=== PATIENT | male | born 1995 | race Caucasian/White ===

== ENCOUNTER → 2018-03-01 | Outpatient (CLI) | payer BC ==
[2018-03-01 14:05] LABS: Appearance,Urine Clear (Clear); Bilirubin,Urine Negative (Negative); Blood,Urine Negative (Negative); Color,Urine Light Yellow; Glucose,Urine (UA) Negative (Negative); Ketones,Urine Negative (Negative); Leukocyte Esterase,Urine Negative (Negative); Nitrite,Urine Negative (Negative); Protein,Urine Negative (Negative); Specific Gravity,Urine 1.006 (1.001-1.035); Urobilinogen,Urine <2.0 mg/dL (<2.0)
[2018-03-01 14:06] LABS: HCT 46.3 % (39.0-53.0); HGB 15.8 gm/dL (13.0-17.5); MCH 30.1 pg (25.0-35.0); MCHC 34.1 g/dL (31.0-37.0); MCV 88.3 fL (80.0-100.0); Mean Platelet Volume 9.1; Platelet Count 166 k/uL (150-450); RBC 5.25 m/uL (4.30-5.90); RDW 12.7 % (11.5-15.5); WBC 6.1 k/uL (3.8-10.6)
[2018-03-01 14:13] LABS: ALT 29 U/L (21-72); AST 17 U/L (17-59); Albumin 4.5 g/dL (3.5-5.0); Alkaline Phosphatase 72 U/L (38-126); Anion Gap 13 mmol/L; Blood Urea Nitrogen 13 mg/dL (9-20); Calcium 9.9 mg/dL (8.4-10.2); Carbon Dioxide 27 mmol/L (22-30); Chloride 103 mmol/L (98-107); Glucose 92 mg/dL (74-99); INR 1.1 (<1.2); Partial Thromboplastin Time 25.3 sec (22.0-30.0); Potassium 4.3 mmol/L (3.5-5.1); Prothrombin Time 10.3 sec (9.0-12.0); Sodium 143 mmol/L (137-145); Total Bilirubin 0.5 mg/dL (0.2-1.3); Total Protein 7.1 g/dL (6.3-8.2)
== END | disposition home or self-care (01) ==
LOC: LABPAT 13:20
PROVIDERS: ATTEND Orthopaedic Surgery
DX: Z01.818 Encounter for other preprocedural examination (principal); Z01.812 Encounter for preprocedural laboratory examination
CPT/HCPCS: 80053; 81003; 85027; 85610; 85730; 87070; 93005

== ENCOUNTER → 2018-03-15 | Outpatient (CLI) | payer BC | END | disposition home or self-care (01) | LOC: LABPAT 11:33 | PROVIDERS: ATTEND Orthopaedic Surgery | DX: Z01.812 Encounter for preprocedural laboratory examination (principal) | CPT/HCPCS: 86850; 86900; 86901 ==

== ENCOUNTER 2018-03-26 05:44 | Inpatient (IN) | payer BC ==
[2018-03-18 15:28] VITALS: BMI 35.8
[~2018-03-26 05:44] MED LIST: ACETAMINOPHEN TAB 500 MG TAB PO ONE; DEXAMETHASONE SOD PHOSPHATE 10 MG/ML 1 ML VIAL IV ONE; HYDROmorphone 0.5 MG/0.5 ML SYRINGE IVP PRN; LIDOCAINE 1% 20 ML VIAL (10MG/ML) FOR IV START INTRADERMA PRN; MELOXICAM 7.5 MG TAB PO ONE; MIDAZOLAM 2 MG/2 ML VIAL IV PRN; ONDANSETRON ODT 4 MG TAB PO ONE; SCOPOLAMINE 1.5MG/72HR PATCH TRANSDERM ONE; TRANEXAMIC ACID 1,000 MG in SODIUM CHLORIDE 0.9% 50 ML IVPB ONE; ceFAZolin IN SWFI 2 GM/20 ML SYRINGE IVP ONE
[2018-03-26] MEDS ORDERED: ROPIVACAINE 246.25 MG, EPINEPHrine 0.5 MG, KETOROLAC 30 MG, cloNIDine HCL/PF 80 MCG, WA... MISCELLANE ONE ×5 (05:50)
[2018-03-26] MEDS: LACTATED RINGERS 1,000 ML IV SCH (06:33)
[2018-03-26] MEDS ORDERED: HYDROcodone/APAP 5-325MG 1 EACH TAB PO PRN (06:58)
[2018-03-26] MEDS ORDERED: NALOXONE 0.4 MG/ML 1 ML VIAL IV PRN (06:58)
[2018-03-26] MEDS ORDERED: MAGNESIUM HYDROXIDE 2,400 MG/10 ML CUP PO PRN (06:58)
[2018-03-26] MEDS ORDERED: MORPHINE SULFATE 4 MG/ML SYRINGE IVP PRN ×3 (06:58)
[2018-03-26] MEDS ORDERED: hydrOXYzine PAMOATE 25 MG CAP PO PRN (06:58)
[2018-03-26] MEDS ORDERED: DIAZEPAM 5 MG TAB PO PRN ×2 (06:58)
[2018-03-26] MEDS ORDERED: ceFAZolin 3,000 MG in SODIUM CHLORIDE 0.9% IRRIGATIO 3,000 ML IRRIGATION ONE (07:00)
[2018-03-26] MEDS ORDERED: MIDAZOLAM 2 MG/2 ML VIAL ONE (07:00)
[2018-03-26] MEDS ORDERED: SODIUM CHLORIDE 0.9% 100 ML BAG ONE (07:00)
[2018-03-26] MEDS ORDERED: ePHEDrine SULFATE/0.9% NACL/PF 50 MG/5 ML SYRINGE IV ONE (07:00)
[2018-03-26] MEDS ORDERED: fentaNYL (PF) 50 MCG/ML 2 ML AMP ONE (07:00)
[2018-03-26] MEDS ORDERED: PROPOFOL 10 MG/ML 20 ML VIAL IV ONE (07:00)
[2018-03-26] MEDS ORDERED: HEPARIN SODIUM,PORCINE 10,000 UNIT/ML 1 ML VIAL ONE (07:00)
[2018-03-26] MEDS ORDERED: TRANEXAMIC ACID 1,000 MG/10 ML VIAL ONE (07:00)
[2018-03-26] MEDS ORDERED: LACTATED RINGERS 1,000 ML BAG IV ONE (07:00)
[2018-03-26] MEDS ORDERED: DEXTROSE 50%-WATER 50 ML SYRINGE IVP ONE (07:00)
[2018-03-26] MEDS ORDERED: LACTATED RINGERS 1,000 ML IV ONE (08:27)
--- NOTE | 2018-03-26 08:56 | P.OP ---
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 The articulation is Oxinium on polyethylene. Anesthesia: spinal Surgeon: Tomer Louis Parts Identification Technician #1: Jud Ortega Estimated Blood Loss (ml): 600 (261 mL returned with Cell Saver) Pathology: other (Femoral head) Condition: stable Disposition: PACU Indications for Procedure: After failure of conservative treatment we discussed the surgical and nonsurgical treatment options at length. Patient wishes to proceed with a total hip arthroplasty with a direct anterior approach. Complications specific to this procedure were discussed at length, including but not limited to infection, leg length discrepancy, dislocation, and nerve injury. Patient is aware of all these complications and informed consent was obtained Operative Findings: The operative findings are consistent with severe osteoarthritis secondary to the history of Perthes disease. Description of Procedure: Patient was seen and evaluated in the preoperative area, consent was reviewed, and the surgical site was marked with a skin marker. Patient was then brought to the operating room and given prophylactic antibiotics intravenously. 1 g of Tranexamic acid was also given. A spinal anesthetic was administered by the anesthesia department. The patient was then placed on the [place] table with the bony prominences well-padded. The hip area was then prepped and draped in usual sterile fashion. A universal timeout was then performed, which confirmed the patient's name, surgical site, ALLERGIES, and procedure being performed. Next the incision site was located at 1 cm distal and 1 cm lateral to the anterior superior iliac spine. The skin and subcutaneous tissues were sharply incised. Incision was carefully dissected down to the fascia overlying the tensor fascia krista muscle. This fascia was then incised in line with the incision. Next, using blunt finger dissection, the tensor fascia krista muscle was dissected off its investing fascia. The muscle was then carefully retracted laterally with a cobra retractor over the lateral neck of the femur. Next, the circumflex vessels were identified and cauterized using the AquaMantis device. The anterior hip capsule was then exposed. The capsule was then opened and an inverted T fashion. Cobra retractors were then placed intracapsularly. The proximal femur was then visualized. The femoral neck was then osteotomized appropriate level above the lesser trochanter. Small amount of traction was placed with the [place] table. A small wedge of bone was then removed from the remaining femoral head. Next, using a corkscrew femoral head was easily removed from the acetabulum. On gross visual inspection, the femoral head had complete loss of articular cartilage in multiple periarticular osteophytes. Attention was then turned to the acetabulum. the acetabulum was exposed and any remaining labrum was excised. Sequential reaming of the acetabulum was performed using fluoroscopic guidance. When the appropriate size was reached, a trial was then placed. The position and fit of the trial was checked with fluoroscopy. The trial was then removed. Then, using fluoroscopic guidance, the final implant was impacted at 20 of anteversion and 40 of abduction, and fully seated in the acetabulum. 3 screws were then placed in the acetabulum. Again fluoroscopy was used to check position of the screws. Next, the liner was then impacted, with a 20 elevated liner located in the anterior superior quadrant. Component locking was confirmed. Attention was then directed to the femur. With the aid of the [place] table, the femur was externally rotated to approximately 130, extended, and abducted under the opposite leg. A side hook was then placed under the proximal femur, and the side hook elevator was used to elevate the proximal femur. Retractors were then placed. A capsular release was performed, as well as a release of the conjoined tendon, which afforded excellent visualization of the proximal femur. Next, a box osteotome was used to lateralize the proximal femur. A hand packer was then used to locate the femoral canal. Sequential broaching was then performed with appropriate size which afforded excellent fixation in the proximal femur. A trial was then placed with appropriate head and neck, and the hip was gently reduced with the aid of the [place] table. Fluoroscopy was then used to check position of the components, as well as to ensure equal leg lengths. The hip was then gently dislocated and the trials were then removed. Final implants were then impacted and the hip was again reduced. Final fluoroscopic x-rays confirmed that the components were in anatomic position, as well as equal leg lengths. The hip was also taken through range of motion, and found to be stable. The hip was then copiously irrigated with antibiotic solution with pulsatile lavage. The hip was then irrigated with Irrisept solution. The soft tissues were then injected with a ropivacaine solution, which consisted of 246.25 mg of ropivacaine, 0.5 mg of epinephrine, 30 mg of Toradol, 80 g of clonidine, and 48.45 mL of sterile water, for a total of 100 mL of fluid injected. A second dose of 1 g of Tranexamic acid was also given. the fascia was then closed with 2-0 strata fix suture. The subcutaneous tissue was closed with 3-0 Vicryl. The subcuticular tissue was closed with 3-0 strata fix suture. The skin was then closed with Dermabond glue and a sterile silver dressing. The patient was then transferred to the recovery room in stable condition. The title assistant NALLELY Zafar was required due to the complexity of surgery, and the need for skilled surgical supply assistant for positioning, draping, exposure, retraction, and closure of the wound.
[2018-03-26] MEDS: MORPHINE SULFATE 2 MG/ML SYRINGE IV PRN ×4 (09:21→10:18)
--- NOTE | 2018-03-26 09:50 | XR ---
EXAMINATION TYPE: XR Hip Limited RT DATE OF EXAM: 03/26/2018 CLINICAL HISTORY: Right hip pain and osteoarthritis. TECHNIQUE: Single AP portable view of right hip is obtained immediately postoperatively. COMPARISON: None. FINDINGS: Metallic hardware from right hip arthroplasty is seen and appears satisfactory in alignment and position. There is evidence of recent surgery with subcutaneous gas noted laterally. IMPRESSION: Metallic hardware from right hip arthroplasty is satisfactory in position.
--- NOTE | 2018-03-26 12:20 | FL ---
Fluoroscopy HISTORY: Hip replacement 1 minute 13 seconds fluoroscopy time supplied to the referring clinician. 2 intraoperative C-arm alka ges document the procedure. See dictated report from orthopedic surgery.
--- NOTE | 2018-03-26 12:28 | XR ---
Limited right hip HISTORY: Right hip replacement 2 intraoperative C-arm images document the procedure
[2018-03-26] MEDS: HYDROcodone/APAP 5-325MG 1 EACH TAB PO PRN ×2 (14:21→21:35)
[2018-03-26] MEDS: SODIUM CHLORIDE 0.9% 1,000 ML IV SCH (14:22)
[2018-03-26] MEDS: ceFAZolin IN SWFI 2 GM/20 ML SYRINGE IVP SCH ×2 (17:04→23:23)
--- NOTE | 2018-03-26 17:17 | P.CONS ---
History of Present Illness - Reason for Consult Preoperative consultation management - History of Present Illness Patient was admitted for right hip arthroplasty elective surgery secondary to severe osteoarthritis from perthes disease. Patient's x-ray underwent surgery did pass gas did not move his bowel yet patient the underwent surgery today. Patient denied any fever chills nausea vomiting. Dysuria, denied any cough. Patient does not have any major medical problems bit obese Review of Systems REVIEW OF SYSTEMS: CONSTITUTIONAL: No fever, no malaise, no fatigue. HEENT: No recent visual problems or hearing problems. Denied any sore throat. CARDIOVASCULAR: No chest pain, orthopnea, PND, no palpitations, no syncope. PULMONARY: No shortness of breath, no cough, no hemoptysis. GASTROINTESTINAL: No diarrhea, no nausea, no vomiting, no abdominal pain. Normoactive bowel sounds. NEUROLOGICAL: No headaches, no weakness, no numbness. HEMATOLOGICAL: Denies any bleeding or petechiae. GENITOURINARY: Denies any burning micturition, frequency, or urgency. MUSCULOSKELETAL/RHEUMATOLOGICAL: Denies any joint pain, swelling, or any muscle pain. ENDOCRINE: Denies any polyuria or polydipsia. The rest of the 14-point review of systems is negative. Past Medical History Additional Past Medical History / Comment(s): perthes disease History of Any Multi-Drug Resistant Organisms: None Reported Additional Past Surgical History / Comment(s): hx 2 hips surgeries with pins Past Anesthesia/Blood Transfusion Reactions: No Reported Reaction Past Psychological History: No Psychological Hx Reported Smoking Status: Never smoker Past Alcohol Use History: Occasional Past Drug Use History: Marijuana Additional Drug Use History / Comment(s): occassional marijuana use - Past Family History Father Family Medical History: Liver Disease Additional Family Medical History / Comment(s): hx hepatitis C Medications and Allergies Home Medications Medication Instructions Recorded Confirmed Type No Known Home Medications [No 03/18/18 03/26/18 History Known Home Medications] Allergies Allergy/AdvReac Type Severity Reaction Status Date / Time latex Allergy Rash/Hives Verified 03/26/18 08:28 Physical Exam Vitals: Vital Signs Temp Pulse Pulse Resp BP Pulse Ox 03/26/18 14:55 98.9 F 81 16 108/63 97 03/26/18 12:30 69 98/61 03/26/18 12:15 62 105/60 05/01/18 12:00 82 114/70 03/26/18 11:45 66 109/72 03/26/18 11:30 97.7 F 71 16 120/77 100 03/26/18 10:50 73 16 117/56 03/26/18 10:20 66 16 118/58 99 03/26/18 10:05 63 16 111/55 99 03/26/18 09:50 80 16 111/55 99 03/26/18 09:35 77 18 113/58 100 03/26/18 09:20 68 16 117/55 99 03/26/18 09:05 96.9 F L 73 16 110/59 100 03/26/18 06:25 98.2 F 91 16 146/70 97 Intake and Output 03/26/18 03/26/18 03/26/18 06:59 14:59 22:59 Intake Total 100 1741 Output Total 600 Balance 100 1141 Intake: IV 100 1741 Sodium Chloride 0.9% 1, 140 000 ml @ 70 mls/hr IV . [id number] [facility] Rx#:[id number] Output: Estimated Blood Loss 600 Other: Weight 100.698 kg PHYSICAL EXAMINATION: GENERAL: The patient is alert and oriented x3, not in any acute distress. Well developed, well nourished. HEENT: Pupils are round and equally reacting to light. EOMI. No scleral icterus. No conjunctival pallor. Normocephalic, atraumatic. No pharyngeal erythema. No thyromegaly. CARDIOVASCULAR: S1 and S2 present. No murmurs, rubs, or gallops. PULMONARY: Chest is clear to auscultation, no wheezing or crackles. ABDOMEN: Soft, nontender, nondistended, normoactive bowel sounds. No palpable organomegaly. MUSCULOSKELETAL: Deferred to orthopedic surgery EXTREMITIES: No cyanosis, clubbing, or pedal edema. NEUROLOGICAL: Gross neurological examination did not reveal any focal deficits. SKIN: No rashes. Assessment and Plan Plan: -Severe osteoarthritis status post right knee arthroplasty -Obesity: Dietary counseling was provided -Perthes disease. Plan: Pain management due to prophylaxis wound care as per primary service patient is otherwise clinically doing well did pass gas, doesn't have any major medical problems counseling regarding marijuana use was provided. We'll continue to follow the patient on as-needed basis
[2018-03-26] MEDS ORDERED: SENNOSIDES-DOCUSATE SODIUM 1 EACH TAB PO SCH (21:00)
[2018-03-26] MEDS: ASPIRIN 325 MG TAB PO SCH (21:25)
[2018-03-27] MEDS: SODIUM CHLORIDE 0.9% 1,000 ML IV SCH ×2 (00:46→07:43)
[2018-03-27 01:41] VITALS: RESP 15
[2018-03-27] MEDS: HYDROcodone/APAP 5-325MG 1 EACH TAB PO PRN ×2 (03:21→12:52)
[2018-03-27 07:03] VITALS: BP 118/71; PULSE 89; TEMP 97.8
[2018-03-27] MEDS: LACTATED RINGERS 1,000 ML IV SCH (07:42)
[2018-03-27] MEDS ORDERED: HYDROmorphone 2 MG TAB PO PRN ×2 (07:51→07:52)
[2018-03-27] MEDS ORDERED: HYDROmorphone 4 MG TABLET PO PRN (07:51)
[2018-03-27 08:03] LABS: Basophils % (A) 0 %; Eosinophils # (A) 0.1 k/uL (0-0.7); Eosinophils % (A) 1 %; HCT 34.8 % (39.0-53.0); Lymphocytes # (A) 2.5 k/uL (1.0-4.8); Lymphocytes % (A) 26 %; MCH 30.3 pg (25.0-35.0); MCHC 34.3 g/dL (31.0-37.0); MCV 88.4 fL (80.0-100.0); Mean Platelet Volume 8.7; Monocytes # (A) 0.7 k/uL (0-1.0); Monocytes % (A) 7 %; Neutrophils # (A) 6.3 k/uL (1.3-7.7); Neutrophils % (A) 65 %; Platelet Count 132 k/uL (150-450); RBC 3.93 m/uL (4.30-5.90); RDW 12.4 % (11.5-15.5); WBC 9.7 k/uL (3.8-10.6)
[2018-03-27 08:05] LABS: HGB 11.9 gm/dL (13.0-17.5)
[2018-03-27] MEDS: ASPIRIN 325 MG TAB PO SCH (08:18)
--- NOTE | 2018-03-27 08:32 | P.DS ---
Providers Date of admission: 03/26/18 05:44 Expected date of discharge: 03/27/18 Attending physician: Tomer Louis Consults: 03/26/18 06:58 Consult Physician Routine Consulting Provider: Franklin Matos Consult Reason/Comments: medical management Do you want consulting provider notified?: Yes Primary care physician: Mario Lopez - Discharge Diagnosis(es) (1) Primary osteoarthritis of right hip Current Visit: Yes Status: Acute (2) S/P total hip arthroplasty Current Visit: Yes Status: Acute (3) History of Perthes disease Current Visit: Yes Status: Acute Hospital Course: This is a 23-year-old male with known history of degenerative arthritis of the right hip secondary to Perthes disease. The patient presents for evaluation. After discussion and consideration patient elects to proceed with total hip arthroplasty. The patient is seen preoperatively by Dr. Louis and medically cleared for surgery by their primary care physician. Patient is admitted to [facility] on 03/26/2018 for total hip arthroplasty. The procedures performed without complication or sequelae. The patient is doing well postoperatively. Labs and vital signs are stable on day of discharge. On day of discharge patient's hip incision is healing well. There is minimal erythema. There is no drainage noted at this time. There is minimal soft tissue swelling to the hip and thigh. Patient has full foot and ankle motion without difficulty or pain. Neurovascular status to the right lower extremity is intact. Patient is discharged home in good condition. Please see med rec for accurate list of home medications. Plan - Discharge Summary Discharge Rx Participant: Yes New Discharge Prescriptions: New Aspirin 325 mg PO BID #60 tab HYDROcodone/APAP 5-325MG [Rupert 5-325] 1 - 2 tab PO Q4-6H PRN #90 tab PRN Reason: Pain Sennosides [Senokot] 1 tab PO BID #60 tablet Discharge Medication List Aspirin 325 mg PO BID #60 tab 03/27/18 [Rx] HYDROcodone/APAP 5-325MG [Rupert 5-325] 1 - 2 tab PO Q4-6H PRN #90 tab 03/27/18 [ Rx] Sennosides [Senokot] 1 tab PO BID #60 tablet 03/27/18 [Rx] Follow up Appointment(s)/Referral(s): Tomer Louis DO [Doctor of Osteopathic Medicine] - 2 Weeks Activity/Diet/Wound Care/Special Instructions: Weightbearing as tolerated with walker. Leave dressing intact. Dressing may be removed by home care nurse in 10 days. May shower with dressing on. Follow-up with [facility] in 2 weeks, please call with any questions or concerns [phone] Discharge Disposition: HOME WITH HOME HEALTH SERVICES
[2018-03-27] MEDS ORDERED: MELOXICAM 7.5 MG TAB PO SCH (09:00)
== END 2018-03-27 14:06 | disposition home health service (06) | DRG 470 ==
LOC: 2ORMAIN 05:44 → 3SUR 11:10
PROVIDERS: ADMIT Orthopaedic Surgery; ATTEND Orthopaedic Surgery
PROC: 0SR906A Replacement of Right Hip Joint with Oxidized Zirconium on Polyethylene Synthetic Substitute, Uncemented, Open Approach (ICD-10-PCS; principal; 2018-03-26 07:00)
DX: M91.11 Juvenile osteochondrosis of head of femur [Legg-Calve-Perthes], right leg (principal); Z91.040 Latex allergy status
CPT/HCPCS: 73501; 85025; 86850; 86891; 86900; 86901; 88305; 88311